=== PATIENT | female | born 1990 | race Caucasian/White ===

== ENCOUNTER 2018-02-09 18:45 | Outpatient (CLI) | payer OTHER ==
[2018-02-09] MEDS ORDERED: LIDOCAINE 1% (MPF) 30 ML INJ INJ (20:30)
[2018-02-09] MEDS ORDERED: METHYLERGONOVINE 0.2 MG INJ IM (20:30)
[2018-02-09] MEDS ORDERED: BUTORPHANOL 2 MG INJ IV (20:30)
[2018-02-09] MEDS ORDERED: CARBOPROST 250 MCG INJ IM (20:30)
[2018-02-09] MEDS ORDERED: MISOPROSTOL 200 MCG TAB PR (20:30)
[2018-02-09] MEDS ORDERED: IBUPROFEN 600 MG TAB PO (20:30)
[2018-02-09] MEDS ORDERED: OXYTOCIN 30 UNITS/LR 500 ML IV ×3 (20:30)
[2018-02-09 21:11] LABS: ADD MAN DIFF? NO
[2018-02-09] MEDS: LACTATED RINGER'S 1,000 ML IV (21:11)
[2018-02-09] MEDS: AMPICILLIN 2 GM/NS (PMX) 100 ML IV (21:11)
[2018-02-09 21:14] LABS: BASOPHILS % 0.3 % (0.0-2.0); EOSINOPHILS # 0.1 10^3/ul (0.0-0.5); EOSINOPHILS % 1.2 % (0.0-7.0); HEMATOCRIT 33.4 % (37.0-47.0); HEMOGLOBIN 11.6 g/dl (12.0-16.0); LYMPHOCYTES # 2.1 10^3/ul (0.8-2.9); LYMPHOCYTES % 18.3 % (15.0-51.0); MEAN CORPUSCULAR HEMOGLOBIN 31.4 pg (29.0-33.0); MEAN CORPUSCULAR HGB CONC 34.7 g/dl (32.0-37.0); MEAN CORPUSCULAR VOLUME 90.3 fl (82.0-101.0); MEAN PLATELET VOLUME 10.6 fl (7.4-10.4); MONOCYTE # 0.9 10^3/ul (0.3-0.9); MONOCYTES % 7.3 % (0.0-11.0); NEUTROPHIL # 8.4 10^3/ul (1.6-7.5); NEUTROPHILS % 72.3 % (39.0-77.0); PLATELET COUNT 281 10^3/UL (140-415); RED CELL DISTRIBUTION WIDTH 13.8 % (11.5-14.5)
[2018-02-09 21:14] LABS: WHITE BLOOD COUNT 11.7 10^3/ul (4.8-10.8)
[2018-02-09 21:34] LABS: ALANINE AMINOTRANSFERASE 29 IU/L (13-69); ALBUMIN 3.2 g/dl (3.3-4.9); ALBUMIN/GLOBULIN RATIO 1.06; ALKALINE PHOSPHATASE 126 IU/L (42-121); ANION GAP 16 (8-16); ASPARTATE AMINO TRANSFERASE 20 IU/L (15-46); BILIRUBIN,INDIRECT 0.1 mg/dl (0-1.1); BILIRUBIN,TOTAL 0.1 mg/dl (0.2-1.3); BLOOD UREA NITROGEN 8 mg/dl (7-20); CALCIUM 9.3 mg/dl (8.4-10.2); CARBON DIOXIDE 21 mmol/L (21-31); CHLORIDE 106 mmol/L (97-110); CREATININE 0.54 mg/dl (0.44-1.00); GLUCOSE 68 mg/dl (70-220); INR 0.91; POTASSIUM 4.1 mmol/L (3.5-5.1); PROTIME 12.3 Sec (11.9-14.9); SODIUM 139 mmol/L (135-144); TOTAL PROTEIN 6.2 g/dl (6.1-8.1)
[2018-02-09 21:49] LABS: URIC ACID 4.2 mg/dl (3.1-7.9)
[2018-02-09 22:09] LABS: HEPATITIS B SURFACE ANTIGEN NEGATIVE (NEGATIVE)
[2018-02-09 22:20] LABS: ADD UMIC YES; UR ASCORBIC ACID NEGATIVE (NEGATIVE); UR BACTERIA FEW /HPF (NONE SEEN); UR BILIRUBIN (Dip) NEGATIVE (NEGATIVE); UR BLOOD (Dip) NEGATIVE (NEGATIVE); UR CLARITY CLEAR (CLEAR); UR COLOR YELLOW (YELLOW); UR GLUCOSE (Dip) NEGATIVE (NEGATIVE); UR KETONES (Dip) NEGATIVE (NEGATIVE); UR LEUKOCYTE ESTERASE (Dip) 3+ Leu/ul (NEGATIVE); UR NITRITE (Dip) NEGATIVE (NEGATIVE); UR RBC 2 /HPF (0-5); UR SPECIFIC GRAVITY (Dip) 1.006 (1.003-1.030); UR TOTAL PROTEIN (Dip) NEGATIVE (NEGATIVE); UR UROBILINOGEN (Dip) NEGATIVE (NEGATIVE); UR WBC 1 /HPF (0-5)
[2018-02-09 22:27] LABS: UR SQUAMOUS EPITHELIAL CELL FEW /HPF (FEW)
[2018-02-09 22:37] LABS: AMPHETAMINE/METHAMPHETAMINE Negative (NEGATIVE); BARBITURATES Negative (NEGATIVE); BENZODIAZEPINES Negative (NEGATIVE); CANNABINOIDS Negative (NEGATIVE); COCAINE Negative (NEGATIVE); OPIATES Negative (NEGATIVE)
[2018-02-10] MEDS: AMPICILLIN 1 GM/NS (PMX) 50 ML IV ×4 (00:37→13:26)
[2018-02-10] MEDS: LACTATED RINGER'S 1,000 ML IV ×2 (02:36→11:03)
[2018-02-10 15:19] LABS: RAPID PLASMA REAGIN NONREACTIVE (NR)
== END 2018-02-10 14:10 | disposition home or self-care (01) ==
LOC: OBT 18:45 → L-D 18:46 → OBT 20:33 → L-D 20:05
DX: O47.1 False labor at or after 37 completed weeks of gestation (principal); Z3A.37 37 weeks gestation of pregnancy
CPT/HCPCS: 80053; 80307; 81001; 84560; 85025; 85610; 85730; 86592; 86850; 86900; 86901; 87340

== ENCOUNTER 2018-02-15 04:50 | Inpatient (IN) | payer OTHER ==
[2018-02-15] MEDS ORDERED: MISOPROSTOL 200 MCG TAB PR (06:00)
[2018-02-15] MEDS ORDERED: CARBOPROST 250 MCG INJ IM (06:00)
[2018-02-15] MEDS ORDERED: IBUPROFEN 600 MG TAB PO (06:00)
[2018-02-15] MEDS ORDERED: OXYTOCIN 30 UNITS/LR 500 ML IV (06:00)
[2018-02-15] MEDS ORDERED: METHYLERGONOVINE 0.2 MG INJ IM (06:00)
[2018-02-15] MEDS ORDERED: LIDOCAINE 1% (MPF) 30 ML INJ INJ (06:00)
[2018-02-15] MEDS ORDERED: MINERAL OIL LIGHT 10 ML VIAL TOP (06:00)
[2018-02-15] MEDS ORDERED: BUTORPHANOL 2 MG INJ IV (06:00)
[2018-02-15] MEDS: LACTATED RINGER'S 1,000 ML IV ×3 (06:30→15:38)
[2018-02-15] MEDS: AMPICILLIN 2 GM/NS (PMX) 100 ML IV (06:31)
[2018-02-15 07:04] LABS: ADD MAN DIFF? NO
[2018-02-15 07:17] LABS: WHITE BLOOD COUNT 10.6 10^3/ul (4.8-10.8)
[2018-02-15 07:17] LABS: BASOPHILS % 0.4 % (0.0-2.0); EOSINOPHILS # 0.1 10^3/ul (0.0-0.5); EOSINOPHILS % 1.2 % (0.0-7.0); HEMATOCRIT 33.2 % (37.0-47.0); HEMOGLOBIN 11.7 g/dl (12.0-16.0); LYMPHOCYTES # 1.8 10^3/ul (0.8-2.9); LYMPHOCYTES % 16.7 % (15.0-51.0); MEAN CORPUSCULAR HEMOGLOBIN 31.8 pg (29.0-33.0); MEAN CORPUSCULAR HGB CONC 35.2 g/dl (32.0-37.0); MEAN CORPUSCULAR VOLUME 90.2 fl (82.0-101.0); MEAN PLATELET VOLUME 10.8 fl (7.4-10.4); MONOCYTE # 0.7 10^3/ul (0.3-0.9); MONOCYTES % 6.4 % (0.0-11.0); NEUTROPHIL # 7.9 10^3/ul (1.6-7.5); NEUTROPHILS % 74.5 % (39.0-77.0); PLATELET COUNT 258 10^3/UL (140-415); RED BLOOD COUNT 3.68 10^6/ul (4.20-5.40); RED CELL DISTRIBUTION WIDTH 14.1 % (11.5-14.5)
[2018-02-15 07:54] LABS: INR 0.96; PROTIME 12.9 Sec (11.9-14.9)
[2018-02-15 07:55] LABS: PARTIAL THROMBOPLASTIN TIME 26.6 Sec (25.0-35.0)
[2018-02-15] MEDS ORDERED: FENTAnyl 2MCG/ML-ROPIV 0.2% 100 ML (08:46)
[2018-02-15] MEDS: AMPICILLIN 1 GM/NS (PMX) 50 ML IV ×4 (10:04→21:58)
[2018-02-15] MEDS ORDERED: DIPHENHYDRAMINE 50 MG INJ IV (11:30)
[2018-02-15] MEDS ORDERED: NALOXONE (0.4 MG/ML) INJ IV (11:30)
[2018-02-15] MEDS ORDERED: ONDANSETRON 4 MG INJ IV (11:30)
[2018-02-15] MEDS: FENTAnyl 2MCG/ML-ROPIV 0.2% 100 ML BAG EPI ×2 (11:58→21:11)
[2018-02-15 16:44] LABS: RAPID PLASMA REAGIN NONREACTIVE (NR)
[2018-02-15] MEDS: MINERAL OIL LIGHT 10 ML VIAL TOP (23:22)
[2018-02-15] MEDS: OXYTOCIN 30 UNITS/LR 500 ML IV ×2 (23:26→23:55)
[2018-02-16] MEDS ORDERED: METHYLERGONOVINE 0.2 MG INJ IM (01:30)
[2018-02-16] MEDS ORDERED: CARBOPROST 250 MCG INJ IM (01:30)
[2018-02-16] MEDS ORDERED: MISOPROSTOL 200 MCG TAB PR (01:30)
[2018-02-16] MEDS ORDERED: ZOLPIDEM 5 MG TAB PO (01:30)
[2018-02-16] MEDS ORDERED: OXYTOCIN 30 UNITS/LR 500 ML IV (01:30)
[2018-02-16] MEDS: OXYCODONE/ASPIRIN (4.88/325) TAB PO ×3 (01:45→22:08)
[2018-02-16] MEDS: WITCH HAZEL/GLYCERIN PAD PR (01:48)
[2018-02-16] MEDS: BENZOCAINE 20% 56 ML SPRAY TOP (01:49)
[2018-02-16] MEDS: LANOLIN 7 GM TUBE TOP (01:50)
[2018-02-16] MEDS: IBUPROFEN 600 MG TAB PO ×3 (06:27→18:16)
[2018-02-16] MEDS: SENNA/DOCUSATE NA (8.6MG/50MG) TAB PO ×2 (08:37→22:08)
[2018-02-16 09:46] LABS: ADD MAN DIFF? NO
[2018-02-16 09:52] LABS: BASOPHILS % 0.2 % (0.0-2.0); EOSINOPHILS # 0.1 10^3/ul (0.0-0.5); EOSINOPHILS % 0.4 % (0.0-7.0); HEMATOCRIT 28.5 % (37.0-47.0); LYMPHOCYTES # 1.5 10^3/ul (0.8-2.9); LYMPHOCYTES % 9.6 % (15.0-51.0); MEAN CORPUSCULAR HEMOGLOBIN 31.8 pg (29.0-33.0); MEAN CORPUSCULAR HGB CONC 35.1 g/dl (32.0-37.0); MEAN CORPUSCULAR VOLUME 90.8 fl (82.0-101.0); MEAN PLATELET VOLUME 10.8 fl (7.4-10.4); MONOCYTE # 0.8 10^3/ul (0.3-0.9); MONOCYTES % 5.5 % (0.0-11.0); NEUTROPHIL # 12.9 10^3/ul (1.6-7.5); NEUTROPHILS % 83.7 % (39.0-77.0); PLATELET COUNT 237 10^3/UL (140-415); RED BLOOD COUNT 3.14 10^6/ul (4.20-5.40); RED CELL DISTRIBUTION WIDTH 14.1 % (11.5-14.5)
[2018-02-16 09:52] LABS: WHITE BLOOD COUNT 15.4 10^3/ul (4.8-10.8)
[2018-02-17] MEDS: IBUPROFEN 600 MG TAB PO ×3 (00:21→12:51)
[2018-02-17] MEDS: SENNA/DOCUSATE NA (8.6MG/50MG) TAB PO (09:05)
[2018-02-17] MEDS: DIPHTH/TET/ACEL PERTUSS (ADULT) 0.5 ML VIAL IM* (09:56)
== END 2018-02-17 16:40 | disposition home or self-care (01) | DRG 775 ==
LOC: OBT 04:50 → PP1 02-16 01:15 → L-D 04:50 → OBT 05:48 → L-D 05:48
PROVIDERS: Obstetrics & Gynecology
PROC: 10E0XZZ Delivery of Products of Conception, External Approach (ICD-10-PCS; principal; 2018-02-15)
PROC: 0KQM0ZZ Repair Perineum Muscle, Open Approach (ICD-10-PCS; 2018-02-15)
PROC: 3E033VJ Introduction of Other Hormone into Peripheral Vein, Percutaneous Approach (ICD-10-PCS; 2018-02-15)
DX: O70.1 Second degree perineal laceration during delivery (principal); Z37.0 Single live birth; Z3A.38 38 weeks gestation of pregnancy
CPT/HCPCS: 62319; 85025; 85610; 85730; 86592; 86850; 86900; 86901; 99464